=== PATIENT | female | born 1990 | race Caucasian/White ===

== ENCOUNTER 2018-09-22 13:04 | Outpatient (CLI) | payer OTHER, MEDICAID ==
--- NOTE | 2018-09-22 14:37 | CT ---
HEAD CT NONCONTRAST: Comparison: 09-24-13 Indication: Prior intracranial hemorrhage. Follow up. FINDINGS: There is normal size of the ventricular system. No acute intracranial hemorrhage, mass effect, or mid line shift. Calvarium is intact. IMPRESSION: There are no acute intracranial abnormalities. POS: [facility]
== END 2018-09-22 13:05 | disposition home or self-care (01) ==
LOC: TBSIIMAG 13:04
PROVIDERS: ATTEND Neurological Surgery
DX: I62.9 Nontraumatic intracranial hemorrhage, unspecified (principal)
CPT/HCPCS: 36415; 70450; 80053; 82306; 82607; 82746; 83540; 84425; 84443; 85025